=== PATIENT | female | born 1950 | race Caucasian/White ===

== ENCOUNTER 2017-07-26 07:08 | Inpatient (IN) ==
[2017-07-26] MEDS ORDERED: SODIUM CHLORIDE 0.9% 1,000 ML IV STA (07:27)
[2017-07-26] MEDS ORDERED: cefTRIAXone 1,000 MG in SODIUM CHLORIDE 0.9% 100 ML IV STA (07:30)
[2017-07-26] MEDS ORDERED: cefTRIAXone 1,000 MG VIAL ONE (07:48)
[2017-07-26 07:50] LABS: Basophils % 0.3 % (0.0-0.8); Eosinophils # 0.1 10*3/uL (0.0-0.87); Eosinophils % 0.7 % (0.00-10.9); Hematocrit 28.4 VOL% (35.7-47.0); Hemoglobin 9.9 GM/DL (12.0-16.0); Immature Granulocytes % 0.8 %; Lymphocytes # 1.3 10*3/uL (1.4-4.0); Lymphocytes % 10.6 % (21.3-54.2); Mean Corpuscular HGB Conc 34.9 GM/DL (32-36); Mean Corpuscular Hemoglobin 32 PG (27-34); Mean Corpuscular Volume 92.5 FL (87-102); Mean Platelet Volume 10.7 FL (9.6-12.0); Monocytes # 0.6 10*3/uL (0.11-0.8); Monocytes % 4.7 % (1.7-12.7); Neutrophils # 10.3 10*3/uL (1.4-7.4); Neutrophils % 82.9 % (38.7-73.9); Platelet Count 271 T/CUMM (130-400); Red Blood Count 3.07 MC/CUMM (3.8-5.5); White Blood Count 12.5 T/CUMM (4-12)
[2017-07-26 08:01] LABS: INR 1.1; PT Patient Result 11.3 SECS
[2017-07-26 08:30] LABS: Albumin 3.2 G/DL (3.4-5.0); Bilirubin,Total 2.1 MG/DL (0.2-1.0); Calcium 8.5 MG/DL (8.5-10.1); Osmolality,Calculated 269.7 MOS/KG (273-304); Potassium 2.9 MMOL/L (3.5-5.1); Thyroid Stimulating Hormone 0.065 uIU/ml (0.358-3.74); Total Protein 7.1 G/DL (6.4-8.3); Troponin I Only 0.037 NG/ML (0.00-0.045)
[2017-07-26 09:27] LABS: Apearance,Urine Slightly Hazy (Clear); Bilirubin,Urine Negative (Negative); Blood, Urine Negative (Negative); Glucose,Urine (UA) Negative (Negative); Ketones,Urine Negative (Negative); Nitrite,Urine Negative (Negative); Protein,Urine Negative; RBC,Urine <1 /HPF (0-4); Urine Color Yellow (Yellow); Urine Specific Gravity 1.011 (1.001-1.035); Urine Urobilinogen < 2.0 EU/DL (0.2-1.0); WBC,Urine 1 /HPF (0-6)
[2017-07-26 09:28] LABS: Hyaline Casts,Urine 5 /LPF (0-3); Mucus,Urine Occasional /LPF (Occasional); Squamous Epithelial Cell,Urine Occasional /HPF (0-10)
[2017-07-26] MEDS ORDERED: AZITHROMYCIN 500 MG VIAL IV ONE (10:57)
[2017-07-26] MEDS: AZITHROMYCIN INJ 500 MG in SODIUM CHLORIDE 0.9% 250 ML IV SCH (11:00)
[2017-07-26] MEDS ORDERED: POTASSIUM CHLORIDE 20 MEQ TABLET PO ONE ×2 (11:34→12:35)
[2017-07-26] MEDS ORDERED: ACETAMINOPHEN 325 MG TABLET PO PRN (11:36)
[2017-07-26] MEDS ORDERED: ONDANSETRON 4 MG/2 ML VIAL IV PRN (11:36)
[2017-07-26] MEDS ORDERED: PIPERACILLIN/TAZOBACTAM 3,375 MG in SODIUM CHLORIDE 0.9% 100 ML IV SCH (12:00)
[2017-07-26] MEDS ORDERED: BISACODYL 10 MG SUPP RECTAL PRN (16:26)
[2017-07-26] MEDS ORDERED: BISACODYL 5 MG TABLET PO PRN (16:26)
[2017-07-26] MEDS ORDERED: MAGNESIUM HYDROXIDE SUSP 30 ML UDCUP PO PRN (16:26)
[2017-07-26] MEDS ORDERED: diphenhydrAMINE CAP 25 MG CAPSULE PO PRN (16:26)
[2017-07-26] MEDS ORDERED: SIMETHICONE CHEW 80 MG TABLET PO PRN (16:26)
[2017-07-26] MEDS ORDERED: LOPERAMIDE 2 MG CAPSULE PO PRN (16:26)
[2017-07-26] MEDS ORDERED: ZALEPLON 5 MG CAPSULE PO PRN (16:26)
[2017-07-26] MEDS ORDERED: LACTULOSE 20 GM/30 ML UDCUP PO PRN (16:26)
[2017-07-26] MEDS: PIPERACILLIN/TAZOBACTAM 3,375 MG in SODIUM CHLORIDE 0.9% 100 ML IV SCH ×2 (16:40→23:36)
[2017-07-26] MEDS: SODIUM CHLORIDE 0.9% 1,000 ML IV SCH ×2 (16:40→22:58)
[2017-07-26] MEDS: POTASSIUM CHLORIDE 20 MEQ TABLET PO PRN ×2 (17:02→19:14)
[2017-07-26] MEDS: MAGNESIUM CHLORIDE 64 MG TABLET PO SCH (21:25)
[2017-07-26] MEDS: POTASSIUM CHLORIDE 20 MEQ TABLET PO SCH (21:26)
[2017-07-26] MEDS: ALPRAZolam 0.25 MG TABLET PO PRN (21:26)
[2017-07-26] MEDS: GABAPENTIN 100 MG CAPSULE PO SCH (21:26)
[2017-07-26] MEDS: FOLIC ACID 1 MG TABLET PO SCH (21:26)
[2017-07-26] MEDS: QUEtiapine 100 MG TABLET PO SCH (21:26)
[2017-07-26] MEDS: FAMOTIDINE 20 MG TABLET PO SCH (21:26)
[2017-07-27 01:41] LABS: Basophils % 0.3 % (0.0-0.8); Calcium 7.2 MG/DL (8.5-10.1); Eosinophils # 0.1 10*3/uL (0.0-0.87); Eosinophils % 1.5 % (0.00-10.9); Hematocrit 23.4 VOL% (35.7-47.0); Hemoglobin 8.1 GM/DL (12.0-16.0); Immature Granulocytes % 1.3 %; Immature Granulocytes Absolute 0.12 #; Lymphocytes # 1.1 10*3/uL (1.4-4.0); Lymphocytes % 11.4 % (21.3-54.2); Mean Corpuscular HGB Conc 34.6 GM/DL (32-36); Mean Corpuscular Hemoglobin 32 PG (27-34); Mean Corpuscular Volume 93.2 FL (87-102); Monocytes # 0.5 10*3/uL (0.11-0.8); Monocytes % 5.5 % (1.7-12.7); Neutrophils # 7.5 10*3/uL (1.4-7.4); Osmolality,Calculated 280.8 MOS/KG (273-304); Platelet Count 244 T/CUMM (130-400); Potassium 3.2 MMOL/L (3.5-5.1); Red Blood Count 2.51 MC/CUMM (3.8-5.5); Red Cell Distribution Width 15.2 % (9.3-17.3); White Blood Count 9.4 T/CUMM (4-12)
[2017-07-27 01:42] LABS: INR 1.2; PT Patient Result 12.7 SECS; Partial Thromboplastin Time 28.9 SECS (0-40)
[2017-07-27] MEDS ORDERED: MAGNESIUM SULF RIDER 2 GM in PREMIX 1 EACH IV ONE ×2 (01:59→05:00)
[2017-07-27] MEDS: POTASSIUM CHLORIDE 20 MEQ TABLET PO PRN ×5 (02:16→12:05)
[2017-07-27] MEDS: SODIUM CHLORIDE 0.9% 1,000 ML IV SCH ×4 (04:46→21:46)
[2017-07-27] MEDS: LEVOTHYROXINE 88 MCG TABLET PO SCH (06:15)
[2017-07-27] MEDS ORDERED: MAGNESIUM SULF RIDER 4 GM in PREMIX 1 EACH IV PRN (06:18)
[2017-07-27] MEDS: FAMOTIDINE 20 MG TABLET PO SCH ×2 (09:26→21:47)
[2017-07-27] MEDS: metOLazone 2.5 MG TABLET PO SCH (09:26)
[2017-07-27] MEDS: ASPIRIN 325 MG TABLET PO SCH (09:26)
[2017-07-27] MEDS: MAGNESIUM CHLORIDE 64 MG TABLET PO SCH ×2 (09:26→21:47)
[2017-07-27] MEDS: PANTOPRAZOLE 40 MG TABLET PO SCH (09:27)
[2017-07-27] MEDS: FUROSEMIDE 20 MG TABLET PO SCH (09:27)
[2017-07-27] MEDS: QUEtiapine 100 MG TABLET PO SCH ×2 (09:27→21:47)
[2017-07-27] MEDS: POTASSIUM CHLORIDE 20 MEQ TABLET PO SCH ×2 (09:27→21:47)
[2017-07-27] MEDS: PIPERACILLIN/TAZOBACTAM 3,375 MG in SODIUM CHLORIDE 0.9% 100 ML IV SCH ×2 (09:27→16:22)
[2017-07-27] MEDS: GABAPENTIN 100 MG CAPSULE PO SCH ×3 (09:27→21:46)
[2017-07-27] MEDS: ALPRAZolam 0.25 MG TABLET PO PRN ×3 (09:49→21:47)
[2017-07-27] MEDS: AZITHROMYCIN INJ 500 MG in SODIUM CHLORIDE 0.9% 250 ML IV SCH (13:39)
[2017-07-27] MEDS ORDERED: VANCOMYCIN INJ 750 MG in SODIUM CHLORIDE 0.9% 250 ML IV SCH (17:00)
[2017-07-27] MEDS: VANCOMYCIN INJ 1,000 MG in SODIUM CHLORIDE 0.9% 250 ML IV SCH (21:46)
[2017-07-27] MEDS: FOLIC ACID 1 MG TABLET PO SCH (21:47)
[2017-07-28] MEDS: PIPERACILLIN/TAZOBACTAM 3,375 MG in SODIUM CHLORIDE 0.9% 100 ML IV SCH ×3 (00:23→16:56)
[2017-07-28] MEDS ORDERED: DILTIAZEM 100 MG VIAL.ADD IV ONE (03:05)
[2017-07-28] MEDS ORDERED: SODIUM CHLORIDE 0.9% 100 ML IV ONE (03:06)
[2017-07-28] MEDS: DILTIAZEM INJ 100 MG in SODIUM CHLORIDE 0.9% 100 ML IV SCH ×2 (03:10→09:05)
[2017-07-28] MEDS: SODIUM CHLORIDE 0.9% 1,000 ML IV SCH (04:28)
[2017-07-28] MEDS: LEVOTHYROXINE 88 MCG TABLET PO SCH (05:18)
[2017-07-28 05:58] LABS: Calcium 8.2 MG/DL (8.5-10.1); Osmolality,Calculated 278.5 MOS/KG (273-304); Potassium 2.8 MMOL/L (3.5-5.1)
[2017-07-28] MEDS ORDERED: POTASSIUM CHLORIDE 20 MEQ TABLET PO ONE (07:50)
[2017-07-28] MEDS: ALPRAZolam 0.25 MG TABLET PO PRN ×3 (09:00→21:04)
[2017-07-28] MEDS: POTASSIUM CHLORIDE 20 MEQ TABLET PO SCH (09:00)
[2017-07-28] MEDS: MAGNESIUM CHLORIDE 64 MG TABLET PO SCH ×2 (09:00→21:04)
[2017-07-28] MEDS: FUROSEMIDE 20 MG TABLET PO SCH (09:01)
[2017-07-28] MEDS: QUEtiapine 100 MG TABLET PO SCH ×2 (09:02→21:04)
[2017-07-28] MEDS: PANTOPRAZOLE 40 MG TABLET PO SCH (09:03)
[2017-07-28] MEDS: FAMOTIDINE 20 MG TABLET PO SCH ×2 (09:03→21:04)
[2017-07-28] MEDS: GABAPENTIN 100 MG CAPSULE PO SCH ×3 (09:04→21:04)
[2017-07-28] MEDS: metOLazone 2.5 MG TABLET PO SCH (09:04)
[2017-07-28] MEDS: ASPIRIN 325 MG TABLET PO SCH (09:04)
[2017-07-28] MEDS: AZITHROMYCIN INJ 500 MG in SODIUM CHLORIDE 0.9% 250 ML IV SCH (14:42)
[2017-07-28] MEDS: POTASSIUM CHLORIDE 20 MEQ TABLET PO PRN (14:43)
[2017-07-28] MEDS: POTASSIUM CHLORIDE 20 MEQ/15 ML UDCUP PO SCH ×2 (16:55→20:50)
[2017-07-28] MEDS: VANCOMYCIN INJ 1,000 MG in SODIUM CHLORIDE 0.9% 250 ML IV SCH (20:50)
[2017-07-28] MEDS: FOLIC ACID 1 MG TABLET PO SCH (21:04)
[2017-07-28] MEDS: APIXABAN 2.5 MG TABLET PO SCH (21:04)
[2017-07-28] MEDS: METOPROLOL TARTRATE 25 MG TABLET PO SCH (21:04)
[2017-07-29] MEDS: PIPERACILLIN/TAZOBACTAM 3,375 MG in SODIUM CHLORIDE 0.9% 100 ML IV SCH ×3 (01:09→17:15)
[2017-07-29] MEDS: POTASSIUM CHLORIDE 20 MEQ/15 ML UDCUP PO SCH ×2 (01:09→04:32)
[2017-07-29] MEDS: ALPRAZolam 0.25 MG TABLET PO PRN ×2 (04:55→09:11)
[2017-07-29 05:50] LABS: Basophils % 0.1 % (0.0-0.8); Eosinophils # 0.2 10*3/uL (0.0-0.87); Eosinophils % 2.2 % (0.00-10.9); Hematocrit 25.4 VOL% (35.7-47.0); Hemoglobin 8.7 GM/DL (12.0-16.0); Immature Granulocytes % 0.4 %; Immature Granulocytes Absolute 0.03 #; Lymphocytes # 0.8 10*3/uL (1.4-4.0); Lymphocytes % 11.1 % (21.3-54.2); Mean Corpuscular HGB Conc 34.3 GM/DL (32-36); Mean Corpuscular Hemoglobin 33 PG (27-34); Mean Corpuscular Volume 94.8 FL (87-102); Mean Platelet Volume 10.8 FL (9.6-12.0); Monocytes # 0.5 10*3/uL (0.11-0.8); Monocytes % 6.7 % (1.7-12.7); Neutrophils # 5.9 10*3/uL (1.4-7.4); Neutrophils % 79.5 % (38.7-73.9); Platelet Count 229 T/CUMM (130-400); Red Blood Count 2.68 MC/CUMM (3.8-5.5); Red Cell Distribution Width 15.6 % (9.3-17.3); White Blood Count 7.4 T/CUMM (4-12)
[2017-07-29] MEDS: DILTIAZEM INJ 100 MG in SODIUM CHLORIDE 0.9% 100 ML IV SCH (06:28)
[2017-07-29] MEDS: LEVOTHYROXINE 50 MCG TABLET PO SCH (06:28)
[2017-07-29 06:44] LABS: Calcium 8.1 MG/DL (8.5-10.1); Magnesium 1.2 MG/DL (1.8-2.4); Osmolality,Calculated 278.7 MOS/KG (273-304); Potassium 4.2 MMOL/L (3.5-5.1)
[2017-07-29] MEDS: MAGNESIUM CHLORIDE 64 MG TABLET PO SCH ×2 (09:09→22:01)
[2017-07-29] MEDS: METOPROLOL TARTRATE 25 MG TABLET PO SCH ×2 (09:09→22:02)
[2017-07-29] MEDS: GABAPENTIN 100 MG CAPSULE PO SCH ×3 (09:09→22:02)
[2017-07-29] MEDS: ASPIRIN EC 81 MG TABLET PO SCH (09:10)
[2017-07-29] MEDS: QUEtiapine 100 MG TABLET PO SCH ×2 (09:10→22:00)
[2017-07-29] MEDS: PANTOPRAZOLE 40 MG TABLET PO SCH (09:10)
[2017-07-29] MEDS: APIXABAN 2.5 MG TABLET PO SCH ×2 (09:11→22:00)
[2017-07-29] MEDS: FUROSEMIDE 20 MG TABLET PO SCH (09:11)
[2017-07-29] MEDS: FAMOTIDINE 20 MG TABLET PO SCH ×2 (09:11→22:01)
[2017-07-29] MEDS: AZITHROMYCIN INJ 500 MG in SODIUM CHLORIDE 0.9% 250 ML IV SCH (14:00)
[2017-07-29] MEDS: FOLIC ACID 1 MG TABLET PO SCH (22:01)
[2017-07-30] MEDS: VANCOMYCIN INJ 1,000 MG in SODIUM CHLORIDE 0.9% 250 ML IV SCH (00:20)
[2017-07-30] MEDS: PIPERACILLIN/TAZOBACTAM 3,375 MG in SODIUM CHLORIDE 0.9% 100 ML IV SCH ×3 (01:31→16:33)
[2017-07-30] MEDS: LEVOTHYROXINE 50 MCG TABLET PO SCH (06:36)
[2017-07-30] MEDS: MAGNESIUM SULF RIDER 2 GM in PREMIX 1 EACH IV PRN (09:28)
[2017-07-30] MEDS: FUROSEMIDE 20 MG TABLET PO SCH (09:29)
[2017-07-30] MEDS: METOPROLOL TARTRATE 25 MG TABLET PO SCH ×2 (09:29→22:26)
[2017-07-30] MEDS: MAGNESIUM CHLORIDE 64 MG TABLET PO SCH ×2 (09:29→22:26)
[2017-07-30] MEDS: PANTOPRAZOLE 40 MG TABLET PO SCH (09:29)
[2017-07-30] MEDS: APIXABAN 2.5 MG TABLET PO SCH ×2 (09:30→22:26)
[2017-07-30] MEDS: ASPIRIN EC 81 MG TABLET PO SCH (09:30)
[2017-07-30] MEDS: QUEtiapine 100 MG TABLET PO SCH ×2 (09:30→22:26)
[2017-07-30] MEDS: GABAPENTIN 100 MG CAPSULE PO SCH ×3 (09:30→22:28)
[2017-07-30] MEDS: FAMOTIDINE 20 MG TABLET PO SCH ×2 (09:30→22:26)
[2017-07-30] MEDS: ALPRAZolam 0.25 MG TABLET PO PRN ×2 (09:39→22:27)
[2017-07-30] MEDS: AZITHROMYCIN INJ 500 MG in SODIUM CHLORIDE 0.9% 250 ML IV SCH (13:40)
[2017-07-30] MEDS: ASCORBIC ACID 500 MG TABLET PO SCH ×2 (13:40→22:27)
[2017-07-30] MEDS: FOLIC ACID 1 MG TABLET PO SCH (22:27)
[2017-07-31] MEDS: PIPERACILLIN/TAZOBACTAM 3,375 MG in SODIUM CHLORIDE 0.9% 100 ML IV SCH ×2 (01:05→11:36)
[2017-07-31] MEDS: LEVOTHYROXINE 50 MCG TABLET PO SCH (05:18)
[2017-07-31] MEDS ORDERED: LEVOFLOXACIN 750 MG TABLET PO SCH (09:00)
[2017-07-31] MEDS: GABAPENTIN 100 MG CAPSULE PO SCH (10:12)
[2017-07-31] MEDS: PANTOPRAZOLE 40 MG TABLET PO SCH (10:12)
[2017-07-31] MEDS: QUEtiapine 100 MG TABLET PO SCH (10:13)
[2017-07-31] MEDS: MAGNESIUM CHLORIDE 64 MG TABLET PO SCH (10:13)
[2017-07-31] MEDS: ASCORBIC ACID 500 MG TABLET PO SCH (10:13)
[2017-07-31] MEDS: FAMOTIDINE 20 MG TABLET PO SCH (10:14)
[2017-07-31] MEDS: ALPRAZolam 0.25 MG TABLET PO PRN (10:14)
[2017-07-31] MEDS: FUROSEMIDE 20 MG TABLET PO SCH (10:14)
[2017-07-31] MEDS: ASPIRIN EC 81 MG TABLET PO SCH (10:14)
[2017-07-31] MEDS: METOPROLOL TARTRATE 25 MG TABLET PO SCH (10:14)
[2017-07-31] MEDS: MAGNESIUM SULF RIDER 2 GM in PREMIX 1 EACH IV PRN (10:15)
[2017-07-31] MEDS: APIXABAN 2.5 MG TABLET PO SCH (10:18)
[2017-07-31 11:03] VITALS: BP 145/70
== END 2017-07-31 13:31 | disposition home health service (06) | DRG 871 ==
LOC: EDUNIT# → N.ED 07:08 → N.EDINP 09:23 → SUATTDRO 09:23 → N.EDINP 12:45 → N.TELEN 14:22
PROVIDERS: ADMIT Hospitalist; ATTEND Internal Medicine Cardiovascular Disease